=== PATIENT | female | born 1990 | race American Indian/Alaskan Native ===

== ENCOUNTER 2017-10-18 20:42 | Emergency (ER) | payer OTHER ==
[2017-10-18 20:48] VITALS: BP 152/94
[2017-10-18 21:40] LABS: Basophils % (Auto) 0.5 % (0.0-1.8); Eosinophils % (Auto) 2.6 % (0.0-4.3); Mean Corpuscular HGB Conc 33 % (30-34); Mean Corpuscular Hemoglobin 28 pg (28-32); Mean Corpuscular Volume 85 fl (79-97); Platelet Count 344 K/mm3 (140-440); Red Blood Count 4.24 M/mm3 (3.65-5.03); White Blood Count 11.5 K/mm3 (4.5-11.0)
[2017-10-18 21:50] LABS: Alanine Aminotransferase 35 units/L (7-56); Albumin/Globulin Ratio 1.3 %; Alkaline Phosphatase 86 units/L (35-129); Anion Gap 19 mmol/L; BUN/Creatinine Ratio 18; Blood Urea Nitrogen 9 mg/dL (7-17); Calcium 8.9 mg/dL (8.4-10.2); Carbon Dioxide 24 mmol/L (22-30); Glucose 104 mg/dL (65-100); Lipase 30 units/L (13-60); Sodium 140 mmol/L (137-145); Total Protein 7.2 g/dL (6.3-8.2)
[2017-10-18 22:25] LABS: Bilirubin,Urine NEG (Negative); Blood,Urine NEG (Negative); Ketones,Urine NEG (Negative); Leukocyte Esterase,Urine NEG (Negative); Mucus,Urine FEW /HPF; Nitrite,Urine NEG (Negative); Protein,Urine <15 mg/dL mg/dL (Negative); RBC,Urine < 1.0 /HPF (0.0-6.0)
== END 2017-10-19 02:00 | disposition left against medical advice (07) ==
LOC: ED 20:42
DX: R10.10 Upper abdominal pain, unspecified (principal); Z53.21 Procedure and treatment not carried out due to patient leaving prior to being seen by health care provider
CPT/HCPCS: 36415; 80053; 81001; 83690; 84703; 85025

== ENCOUNTER 2018-07-30 02:36 | Emergency (ER) | payer OTHER ==
[2018-07-30] MEDS ORDERED: TYLENOL ONE (04:08)
[2018-07-30] MEDS ORDERED: MORPHINE IM ONE (08:59)
[2018-07-30] MEDS ORDERED: ZOFRAN IM ONE (08:59)
--- NOTE | 2018-07-30 09:03 | Emergency Department Report ---
ED Headache HPI - General Chief Complaint: Headache Stated Complaint: HEADACHE Time Seen by Provider: 07/30/18 08:55 - History of Present Illness Initial Comments: Patient is 28 years old female with history of headache migraine. Patient presented to the ER complaining of headache for the last 3 days associated with nausea and vomiting. Patient stated that her headache is different in severity. Patient denied any fever or neck pain. Patient also denied any chest pain or abdominal pain or pelvic pain. Patient denied any weakness numbness or tingling sensation, no bowel or bladder incontinence. Allergies/Adverse Reactions: Allergies No Known Allergies Allergy (Unverified 10/18/17 20:48) ED Review of Systems ROS: Stated complaint: HEADACHE Other details as noted in HPI Constitutional: denies: chills, fever ENT: denies: ear pain, throat pain Respiratory: denies: cough, orthopnea Cardiovascular: denies: chest pain Gastrointestinal: nausea, vomiting. denies: abdominal pain, diarrhea Musculoskeletal: denies: back pain ED Past Medical Hx - Past Medical History Previous Medical History?: No - Surgical History Past Surgical History?: Yes Additional Surgical History: C/S - Social History Smoking Status: Never Smoker Substance Use Type: None ED Physical Exam - General Limitations: No Limitations General appearance: alert, in no apparent distress - Head Head exam: Present: atraumatic, normocephalic, normal inspection - Eye Eye exam: Present: normal appearance, PERRL - ENT ENT exam: Present: normal exam, normal orophraynx, mucous membranes moist, normal external ear exam - Neck Neck exam: Present: normal inspection, full ROM. Absent: tenderness, meningismus, lymphadenopathy, thyromegaly - Respiratory Respiratory exam: Present: normal lung sounds bilaterally. Absent: respiratory distress, wheezes, rales, rhonchi, stridor, chest wall tenderness, accessory muscle use, decreased breath sounds, prolonged expiratory - Cardiovascular Cardiovascular Exam: Present: regular rate, normal rhythm, normal heart sounds - GI/Abdominal GI/Abdominal exam: Present: soft, normal bowel sounds. Absent: distended, tenderness, guarding, rebound, rigid, organomegaly, mass, bruit, pulsatile mass , hernia - Extremities Exam Extremities exam: Present: normal inspection, full ROM, normal capillary refill. Absent: tenderness, pedal edema, calf tenderness - Back Exam Back exam: Present: normal inspection, full ROM. Absent: CVA tenderness (R), CVA tenderness (L), muscle spasm, paraspinal tenderness, vertebral tenderness - Neurological Exam Neurological exam: Present: alert, oriented X3, CN II-XII intact, normal gait, reflexes normal - Skin Skin exam: Present: warm, intact, normal color ED Course Vital Signs 07/30/18 07/30/18 07/30/18 04:12 08:17 09:30 Temperature 98.9 F 98.5 F Pulse Rate 91 H 77 Respiratory 16 16 16 Rate Blood Pressure 142/89 126/83 Blood Pressure [Left] O2 Sat by Pulse 100 100 Oximetry 07/30/18 09:51 Temperature 98.6 F Pulse Rate 84 Respiratory 16 Rate Blood Pressure Blood Pressure 130/76 [Left] O2 Sat by Pulse Oximetry - Reevaluation(s) Reevaluation #1: 07/30/18 11:25 Patient stated that she is feeling much better. However headache is almost resolved. I informed the patient about CT brain which is negative except for acute sinusitis. Patient will be treated with Augmentin twice a day for 7 days and Flonase. ED Medical Decision Making - Radiology Data Radiology results: report reviewed Referring Physician: MARITZA ZELAYA Patient Name: MARIE MEYER Date of : 1990 Sex: Female Report Date: 2018-07-30 Report Status: Finalized Findings [facility] [address] [place] [address] Cat Scan Report Signed Patient: MARIE MEYER MR#: [id number] : 1990 Acct:[id number] Age/Sex: 28 / F ADM Date: 07/30/18 Loc: ED Attending Dr: Ordering Physician: MARITZA ZELAYA Date of Service: 07/30/18 Procedure(s): CT head/brain wo con Accession Number(s): [id number] cc: MARITZA ZELAYA CT HEAD WITHOUT CONTRAST: HISTORY: Headache. TECHNIQUE: Sequential 2.5mm CT images. COMPARISON: none. FINDINGS: Cerebral Parenchyma: Within normal limits. Cerebellum: Within normal limits. Brainstem: Within normal limits. Ventricles: Normal. Sella: Normal. Extra-axial spaces: Normal. Basal Cisterns: Normal. Intracranial Hemorrhage: None. Midline Shift: None. Calvarium: Normal. Sinuses: The left frontal sinus, left ethmoid air cells and visualized left maxillary sinus are occluded or nearly occluded. Mastoid Air Cells: Normal. Visualized Orbits: Normal. IMPRESSION: Cranial CT scan within normal limits. Sinus disease as described above. Correlate for acute sinusitis. Transcribed By: TTR Dictated By: ROWENA PADRON JR, MD Electronically Authenticated By: ROWENA PADRON JR, MD Signed Date/Time: 07/30/181052 DD/ 52 TD/TT: 07/30/181052 Critical care attestation.: If time is entered above; I have spent that time in minutes in the direct care of this critically ill patient, excluding procedure time. ED Disposition Clinical Impression: Sinusitis, acute, Headache Disposition: DC-01 TO HOME OR SELFCARE Is pt being admited?: No Condition: Stable Instructions: Acute Bacterial Rhinosinusitis (ED), Acute Headache (ED) Referrals: PRIMARY CARE, [Primary Care Provider] - 3-5 Days Forms: Work/School Release Form(ED)
[2018-07-30 09:44] LABS: HCG Qualitative,Urine Negative (Negative)
[2018-07-30 09:47] LABS: Bacteria,Urine 1+ /HPF (Negative); Bilirubin,Urine NEG (Negative); Blood,Urine NEG (Negative); Color,Urine Yellow (Yellow); Mucus,Urine FEW /HPF; Protein,Urine <15 mg/dL mg/dL (Negative); Urobilinogen,Urine < 2.0 mg/dL (<2.0)
--- NOTE | 2018-07-30 10:54 | Cat Scan Report ---
CT HEAD WITHOUT CONTRAST: HISTORY: Headache. TECHNIQUE: Sequential 2.5mm CT images. COMPARISON: none. FINDINGS: Cerebral Parenchyma: Within normal limits. Cerebellum: Within normal limits. Brainstem: Within normal limits. Ventricles: Normal. Sella: Normal. Extra-axial spaces: Normal. Basal Cisterns: Normal. Intracranial Hemorrhage: None. Midline Shift: None. Calvarium: Normal. Sinuses: The left frontal sinus, left ethmoid air cells and visualized left maxillary sinus are occluded or nearly occluded. Mastoid Air Cells: Normal. Visualized Orbits: Normal. IMPRESSION: Cranial CT scan within normal limits. Sinus disease as described above. Correlate for acute sinusitis.
[2018-07-30 11:54] VITALS: BP 108/70
== END 2018-07-30 11:54 | disposition home or self-care (01) ==
LOC: ED 02:36
DX: J01.90 Acute sinusitis, unspecified (principal); R11.2 Nausea with vomiting, unspecified
CPT/HCPCS: 70450; 81001; 81025; 96372; 99284; J2270; J2405

== ENCOUNTER 2020-02-04 20:17 | Outpatient (CLI) | payer MEDICAID ==
[2020-02-04 20:50] VITALS: BP 109/72
[2020-02-04 21:30] LABS: Bacteria,Urine 3+ /HPF (Negative); Bilirubin,Urine NEG (Negative); Blood,Urine NEG (Negative); Color,Urine Yellow (Yellow); Mucus,Urine FEW /HPF; Protein,Urine <15 mg/dL mg/dL (Negative); Urobilinogen,Urine < 2.0 mg/dL (<2.0)
== END 2020-02-04 22:00 | disposition home or self-care (01) ==
LOC: TRG 20:17
PROVIDERS: ATTEND Obstetrics & Gynecology
DX: O47.03 False labor before 37 completed weeks of gestation, third trimester (principal); Z3A.23 23 weeks gestation of pregnancy
CPT/HCPCS: 81001

== ENCOUNTER 2020-04-13 22:49 | Outpatient (CLI) | payer MEDICAID ==
[2020-04-14 05:28] VITALS: BP 123/76
== END 2020-04-14 00:41 | disposition home or self-care (01) ==
LOC: TRG 22:49 → APU 22:50 → TRG 04-14 00:41
PROVIDERS: ATTEND Obstetrics & Gynecology
DX: O26.893 Other specified pregnancy related conditions, third trimester (principal); R10.9 Unspecified abdominal pain; Z3A.34 34 weeks gestation of pregnancy
CPT/HCPCS: 59025